=== PATIENT | female | born 1955 | race Caucasian/White ===

== ENCOUNTER 2016-11-08 19:49 | Outpatient (CLI) | payer OTHER ==
--- OUTSIDE RECORDS SUMMARY | 2016-11-08 20:05 | XMS REPORT | Continuity of Care Document ---
Author Author [facility] Organization [facility] Address Unknown Phone Unavailable Care Team Providers Care Manager Track Name Role Phone JACQUELINE FREY DO PCP Insurance Providers Payer Name Policy Number Subscriber Name Relationship [facility] [id number] Matthew Kwan 20 Self / Same As [...] Discharge/Depart Date Attending Provider Discharged Recurring [facility] 06/20/16 10:36am 2:32pJEFFERSON Walters
== END 2016-11-09 06:20 | disposition home or self-care (01) ==
LOC: SLEEP 19:49
PROVIDERS: ATTEND Internal Medicine Critical Care Medicine
DX: G47.33 Obstructive sleep apnea (adult) (pediatric) (principal)
CPT/HCPCS: 95810

== ENCOUNTER → 2016-12-24 | Outpatient (RCR) | payer BC, OTHER ==
--- OUTSIDE RECORDS SUMMARY | 2016-09-25 14:38 | XMS REPORT | Continuity of Care Document ---
Author Author [facility] Organization [facility] Address Unknown Phone Unavailable Care Team Providers Care Receiver/Laborer Name Role Phone JACQUELINE FREY DO PCP Insurance Providers Payer Name Policy Number Subscriber Name Relationship [facility] [id number] Matthew Kwan 20 Self / Same As Patient Problems No problem information available. Medications No medication information available. Social History Social History Problem Response Recorded Date/Time Recent Foreign Travel No 06/13/2016 9:37am Hospital Discharge Instructions No hospital discharge instructions. Plan of Care Prescriptions See Medication Section Functional Status No functional status results. Allergies, Adverse Reactions, Alerts Allergen Type Severity Reaction Status Last Updated Codeine Allergy Unknown Active 07/07/15 penicillin Allergy Unknown Active 07/07/15 Immunizations No immunization records. Vital Signs No known vital signs results. Results Laboratory Results Test Name Result Units Flags Reference Collection Date/Time Result Date/ Time Comments White Blood Count 8.5 10^3/uL 4.3-11.0 06/13/2016 10:18am 06/13/2016 10 :34am Red Blood Count 4.64 10^6/uL 4.35-5.85 06/13/2016 10:18am 06/13/2016 10 :34am Hemoglobin 14.5 G/DL 11.5-16.0 06/13/2016 10:18am 06/13/2016 10:34am Hematocrit 44 % 35-52 06/13/2016 10:18am 06/13/2016 10:34am Mean Corpuscular Volume 95 FL 80-99 06/13/2016 10:06/13/2016 10: 34am Mean Corpuscular Hemoglobin 31 PG 25-34 06/13/2016 10:06/13/2016 10:34am Mean Corpuscular Hemoglobin Concent 33 G/DL 32-36 06/13/2016 10: 10:34am Red Cell Distribution Width 13.5 % 10.0-14.5 06/13/2016 10:2015 10:34am Platelet Count 356 10^3/uL 130-400 06/13/2016 10:06/13/2016 10: 34am Mean Platelet Volume 9.7 FL 7.4-10.4 06/13/2016 10:06/13/2016 10: 34am Neutrophils (%) (Auto) 47 % 42-75 06/13/2016 10:06/13/2016 10: 34am Lymphocytes (%) (Auto) 36 % 12-44 06/13/2016 10:06/13/2016 10: 34am Monocytes (%) (Auto) 10 % 0-12 06/13/2016 10:06/13/2016 10:34am Eosinophils (%) (Auto) 7 % 0-10 06/13/2016 10:06/13/2016 10:34am Basophils (%) (Auto) 2 % 0-10 06/13/2016 10:06/13/2016 10:34am Neutrophils # (Auto) 4.0 X 10^3 1.8-7.8 06/13/2016 10:06/13/2016 10:34am Lymphocytes # (Auto) 3.0 X 10^3 1.0-4.0 06/13/2016 10:06/13/2016 10:34am Monocytes # (Auto) 0.8 X 10^3 0.0-1.0 06/13/2016 10:06/13/2016 10: 34am Eosinophils # (Auto) 0.6 10^3/uL H 0.0-0.3 06/13/2016 10:06/13/2016 10:34am Basophils # (Auto) 0.1 10^3/uL 0.0-0.1 06/13/2016 10:1806/13/2016 10 :34am Sodium Level 140 MMOL/L 135-145 06/13/2016 10:1806/13/2016 10:56am Potassium Level 4.3 MMOL/L 3.6-5.0 06/13/2016 10:1806/13/2016 10: 56am Chloride Level 105 MMOL/L 98-107 06/13/2016 10:1806/13/2016 10:56am Carbon Dioxide Level 25 MMOL/L 21-32 06/13/2016 10:1806/13/2016 10: 56am Anion Gap 10 MMOL/L 5-14 06/13/2016 10:1806/13/2016 10:56am Blood Urea Nitrogen 11 MG/DL 7-18 06/13/2016 10:1806/13/2016 10: 56am Creatinine 0.81 MG/DL 0.60-1.30 06/13/2016 10:1806/13/2016 10:56am BUN/Creatinine Ratio 14 06/13/2016 10:1806/13/2016 10:56am Estimat Glomerular Filtration Rate > 60 06/13/2016 10:182015 10:56am GFR INTERPRETIVE DATA UNITS FOR ESTIMATED GFR (eGFR): mL/min/1.73 M2 REFERENCE RANGE FOR ESTIMATED GFR (eGFR) eGFR NORMAL eGFR >60 MODERATELY DECREASED eGFR 30-59 SEVERLY DECREASED eGFR 15-29 KIDNEY FAILURE <15 (OR DIALYSIS) Glucose Level 109 MG/DL H 70-105 06/13/2016 10:1806/13/2016 10:56am Calcium Level 9.4 MG/DL 8.5-10.1 06/13/2016 10:1806/13/2016 10:56am Total Bilirubin 0.4 MG/DL 0.1-1.0 06/13/2016 10:1806/13/2016 10: 56am Alkaline Phosphatase 101 U/L 40-136 06/13/2016 10:1806/13/2016 10: 56am Aspartate Amino Transf (AST/SGOT) 22 U/L 5-34 06/13/2016 10:182015 10:56am Alanine Aminotransferase (ALT/SGPT) 26 U/L 0-55 06/13/2016 10:18 10:56am Total Protein 7.3 G/DL 6.4-8.2 06/13/2016 10:18am 06/13/2016 10:56am Albumin 4.1 G/DL 3.2-4.5 06/13/2016 10:18am 06/13/2016 10:56am Procedures No known history of procedures. Encounters Encounter Location Arrival/Admit Date Discharge/Depart Date Attending Provider Discharged Recurring [facility] 06/20/16 10:36am 2:32pJEFFERSON Walters
[2016-09-25 15:06] LABS: BASOPHILS # (AUTO) 0.1 10^3/uL (0.0-0.1); BASOPHILS % (AUTO) 1 % (0-10); EOSINOPHILS # (AUTO) 0.7 10^3/uL (0.0-0.3); EOSINOPHILS % (AUTO) 7 % (0-10); LYMPHOCYTES # (AUTO) 3.6 X 10^3 (1.0-4.0); LYMPHOCYTES % (AUTO) 37 % (12-44); MEAN CORPUSCULAR HEMOGLOBIN 32 PG (25-34); MEAN CORPUSCULAR HGB CONC 33 G/DL (32-36); MEAN CORPUSCULAR VOLUME 96 FL (80-99); MEAN PLATELET VOLUME 9.2 FL (7.4-10.4); MONOCYTES # (AUTO) 1.4 X 10^3 (0.0-1.0); MONOCYTES % (AUTO) 14 % (0-12); NEUTROPHILS # (AUTO) 4.1 X 10^3 (1.8-7.8); NEUTROPHILS % (AUTO) 42 % (42-75); PLATELET COUNT 407 10^3/uL (130-400); RED BLOOD COUNT 4.42 10^6/uL (4.35-5.85); RED CELL DISTRIBUTION WIDTH 13.7 % (10.0-14.5); WHITE BLOOD COUNT 9.9 10^3/uL (4.3-11.0)
--- NOTE | 2016-09-25 15:11 | Diagnostic Imaging Report ---
INDICATION: Shortness of air since this morning. FINDINGS: Frontal and lateral views of the chest compared to an exam from April 05, 2016. The lungs are clear. The heart, mediastinum, and pulmonary vascularity are normal. Surgical clips overlie the right chest. IMPRESSION: There are no acute findings. Dictated by: Dictated on workstation # [id number]
[2016-09-25 15:45] LABS: ALANINE AMINOTRANSFERASE 21 U/L (0-55); ALBUMIN 4.1 G/DL (3.2-4.5); ANION GAP 8 MMOL/L (5-14); ASPARTATE AMINO TRANSFERASE 16 U/L (5-34); BILIRUBIN,TOTAL 0.2 MG/DL (0.1-1.0); BLOOD UREA NITROGEN 14 MG/DL (7-18); BUN/CREATININE RATIO 18; CALCIUM 9.8 MG/DL (8.5-10.1); CARBON DIOXIDE 31 MMOL/L (21-32); CHLORIDE 103 MMOL/L (98-107); GFR ESTIMATED > 60; GLUCOSE 94 MG/DL (70-105); POTASSIUM 3.7 MMOL/L (3.6-5.0); SODIUM 142 MMOL/L (135-145); TOTAL PROTEIN 6.8 G/DL (6.4-8.2)
[2016-12-24 14:35] LABS: BASOPHILS # (AUTO) 0.1 10^3/uL (0.0-0.1); BASOPHILS % (AUTO) 1 % (0-10); EOSINOPHILS # (AUTO) 0.7 10^3/uL (0.0-0.3); EOSINOPHILS % (AUTO) 6 % (0-10); LYMPHOCYTES # (AUTO) 4.2 X 10^3 (1.0-4.0); LYMPHOCYTES % (AUTO) 38 % (12-44); MEAN CORPUSCULAR HEMOGLOBIN 31 PG (25-34); MEAN CORPUSCULAR HGB CONC 32 G/DL (32-36); MEAN CORPUSCULAR VOLUME 96 FL (80-99); MEAN PLATELET VOLUME 9.3 FL (7.4-10.4); MONOCYTES # (AUTO) 0.9 X 10^3 (0.0-1.0); MONOCYTES % (AUTO) 8 % (0-12); NEUTROPHILS # (AUTO) 5.3 X 10^3 (1.8-7.8); NEUTROPHILS % (AUTO) 48 % (42-75); PLATELET COUNT 389 10^3/uL (130-400); RED BLOOD COUNT 4.34 10^6/uL (4.35-5.85); RED CELL DISTRIBUTION WIDTH 13.5 % (10.0-14.5); WHITE BLOOD COUNT 11.2 10^3/uL (4.3-11.0)
[2016-12-24 15:03] LABS: ALANINE AMINOTRANSFERASE 46 U/L (0-55); ANION GAP 9 MMOL/L (5-14); ASPARTATE AMINO TRANSFERASE 27 U/L (5-34); BILIRUBIN,TOTAL 0.3 MG/DL (0.1-1.0); BLOOD UREA NITROGEN 10 MG/DL (7-18); BUN/CREATININE RATIO 13; CALCIUM 9.1 MG/DL (8.5-10.1); CARBON DIOXIDE 28 MMOL/L (21-32); CHLORIDE 104 MMOL/L (98-107); CREATININE SERUM 0.79 MG/DL (0.60-1.30); GFR ESTIMATED > 60; GLUCOSE 105 MG/DL (70-105); POTASSIUM 3.8 MMOL/L (3.6-5.0); SODIUM 141 MMOL/L (135-145); TOTAL PROTEIN 7.1 G/DL (6.4-8.2)
--- NOTE | 2016-12-24 18:02 | Diagnostic Imaging Report ---
Indication: Followup lung cancer. Discussion: Two views of the chest were obtained, comparison 09/25/2016. Postoperative changes are stable. The lungs remain mildly hyperinflated. No focal consolidation, pleural fluid, or pneumothorax. Stable normal heart size. No osseous abnormality. Impression: 1. Stable chest. Dictated by: Dictated on workstation # [id number]
== END | disposition home or self-care (01) ==
LOC: ONC 09-25 14:34
PROVIDERS: ATTEND Internal Medicine Hematology & Oncology
DX: C34.11 Malignant neoplasm of upper lobe, right bronchus or lung (principal); J44.9 Chronic obstructive pulmonary disease, unspecified; K21.9 Gastro-esophageal reflux disease without esophagitis; I10 Essential (primary) hypertension; E78.5 Hyperlipidemia, unspecified; Z72.0 Tobacco use; Z79.899 Other long term (current) drug therapy
CPT/HCPCS: 36415; 71020; 80053; 85025; 99213